=== PATIENT | female | born 1955 | race African-American/Black ===

== ENCOUNTER 2016-12-23 08:37 | Emergency (ER) | payer MEDICAID, OTHER ==
[~2016-12-23] VITALS: Ht 162.6 cm; Wt 85.0 kg
[~2016-12-23 08:37] MED LIST: ALBUTEROL; AMLO2.5T45 PO; HYDR12.529 PO
[2016-12-23] MEDS ORDERED: KETOROLAC 30MG/ML VIAL IV STA (09:48)
[2016-12-23] MEDS ORDERED: SODIUM CHLORIDE 0.9% 1,000 ML IV ONE (09:48)
[2016-12-23] MEDS ORDERED: ONDANSETRON HCL 4MG/2ML VIAL IV STA (09:48)
[2016-12-23] MEDS ORDERED: FAMOTIDINE 20MG/2ML VIAL IV STA (09:48)
[2016-12-23 10:22] LABS: BASOPHILS % 0.7 % (0.0-2.0); EOSINOPHILS % 0.6 % (0.0-5.0); HEMATOCRIT. 42.1 % (36.0-48.0); HEMOGLOBIN. 14.3 g/dL (12.0-16.0); LYMPHOCYTES % 12.4 % (20.0-50.0); MEAN CORPUSCULAR HEMOGLOBIN 30.7 pg (28.0-32.0); MEAN CORPUSCULAR VOLUME 90.4 fL (81.0-99.0); MEAN PLATELET VOLUME 7.4 fl (7.4-10.4); MONOCYTES % 5.1 % (2.0-8.0); NEUTROPHILS % 81.2 % (40.0-76.0); PLATELET 436 x1000/uL (130-400); RED BLOOD CELL COUNT 4.66 mill/uL (4.2-5.4); RED CELL DISTRIBUTION WIDTH 13.3 % (11.6-14.6)
[2016-12-23 10:27] LABS: CLARITY URINE CLOUDY (CLEAR); COLOR URINE YELLOW (YELLOW); GLUCOSE URINE NEGATIVE (NEGATIVE); KETONES URINE NEGATIVE (NEGATIVE); LEUKOCYTE ESTERASE URINE NEGATIVE (NEGATIVE); NITRITE URINE NEGATIVE (NEGATIVE); OCCULT BLOOD URINE 2+ (NEGATIVE); PH URINE 6.5 (4.5-8.0); PROTEIN URINE 3+ (NEGATIVE); SPECIFIC GRAVITY URINE 1.021 (1.005-1.030)
[2016-12-23 10:28] LABS: CHLORIDE 97 mEq/L (98-107)
[2016-12-23 10:29] LABS: PROTHROMBIN TIME 10.7 sec (9.4-11.6)
[2016-12-23 10:36] LABS: CARBON DIOXIDE 31 mEq/L (21-32); ETHANOL BLOOD < 10 mg/dL
[2016-12-23 11:06] LABS: *AMPHETAMINES SCREEN URINE NEGATIVE (NEGATIVE); *BARBITURATES SCREEN URINE NEGATIVE (NEGATIVE); *BENZODIAZEPINES SCREEN URINE NEGATIVE (NEGATIVE); *COCAINE SCREEN URINE PRESUMTIVE POSITIVE (NEGATIVE); CANNABINOID URINE SCREEN PRESUMTIVE POSITIVE (NEGATIVE); METHADONE URINE SCREEN NEGATIVE (NEGATIVE); OPIATES URINE SCREEN NEGATIVE (NEGATIVE); PHENCYCLIDINE URINE SCREEN NEGATIVE (NEGATIVE)
[2016-12-23] MEDS ORDERED: POTASSIUM CHLORIDE 20MEQ TABLET SR PO ONE (12:30)
[2016-12-23 13:46] VITALS: BP 146/82
== END 2016-12-23 14:15 | disposition home or self-care (01) ==
LOC: ER 09:03
DX: R19.7 Diarrhea, unspecified (principal); I10 Essential (primary) hypertension; J45.909 Unspecified asthma, uncomplicated; G35 Multiple sclerosis; F12.10 Cannabis abuse, uncomplicated; E87.6 Hypokalemia; F14.10 Cocaine abuse, uncomplicated; Z86.73 Personal history of transient ischemic attack (TIA), and cerebral infarction without residual deficits
CPT/HCPCS: 36415; 80053; 80305; 81001; 83690; 85025; 85610; 93005; 96361; 96374; 96375; 99285; G0482; J1885; J2405; J3490; J7030; Z7610

== ENCOUNTER 2017-03-17 08:34 | Emergency (ER) | payer MEDICAID, OTHER ==
[~2017-03-17] VITALS: Ht 162.6 cm; Wt 70.0 kg
[2017-03-17] MEDS ORDERED: SODIUM CHLORIDE 0.9% 1,000 ML IV ONE (08:58)
[2017-03-17] MEDS ORDERED: ONDANSETRON HCL 4MG/2ML VIAL IV STA (08:58)
[2017-03-17] MEDS ORDERED: PANTOPRAZOLE SODIUM 40 MG/VIAL IV STA (08:58)
[2017-03-17] MEDS ORDERED: MORPHINE SULFATE 4 MG/ML CPJ (NOT FOR IM USE) IV STA (08:58)
[2017-03-17 09:25] LABS: HEMATOCRIT. 40.5 % (36.0-48.0); HEMOGLOBIN. 14.1 g/dL (12.0-16.0); MEAN CORPUSCULAR HEMOGLOBIN 31.6 pg (28.0-32.0); MEAN CORPUSCULAR VOLUME 90.8 fL (81.0-99.0); MEAN PLATELET VOLUME 7.7 fl (7.4-10.4); PLATELET 427 x1000/uL (130-400); RED BLOOD CELL COUNT 4.46 mill/uL (4.2-5.4); RED CELL DISTRIBUTION WIDTH 13.9 % (11.6-14.6)
[2017-03-17 09:26] LABS: CLARITY URINE CLOUDY (CLEAR); COLOR URINE YELLOW (YELLOW); GLUCOSE URINE NEGATIVE (NEGATIVE); KETONES URINE NEGATIVE (NEGATIVE); LEUKOCYTE ESTERASE URINE NEGATIVE (NEGATIVE); NITRITE URINE NEGATIVE (NEGATIVE); OCCULT BLOOD URINE 1+ (NEGATIVE); PH URINE 5.5 (4.5-8.0); PROTEIN URINE 2+ (NEGATIVE); SPECIFIC GRAVITY URINE 1.025 (1.005-1.030); UROBILINOGEN URINE 0.2 E.U./dL (0.2-1.0)
[2017-03-17 09:27] LABS: CHLORIDE 102 mEq/L (98-107)
[2017-03-17 09:28] LABS: PROTHROMBIN TIME 10.9 sec (9.4-11.6)
[2017-03-17 09:38] LABS: CARBON DIOXIDE 27 mEq/L (21-32); TROPONIN I < 0.02 ng/mL (0.00-0.04)
[2017-03-17 10:29] LABS: PLATELET ESTIMATE INCREASED
[2017-03-17] MEDS ORDERED: IOHEXOL-300 100 ML BOTTLE ONE (10:59)
[2017-03-17] MEDS ORDERED: KCL 20MEQ/100ML PREMIX 100 ML IV ONE (11:15)
[2017-03-17] MEDS ORDERED: POTASSIUM CHLORIDE 20MEQ TABLET SR PO ONE (12:15)
[2017-03-17 12:18] VITALS: BP 124/75
== END 2017-03-17 12:48 | disposition home or self-care (01) ==
LOC: ER 08:56 → EDBEDREQ 09:01 → ER 12:48 → CANBEDREQ 16:01
DX: K52.9 Noninfective gastroenteritis and colitis, unspecified (principal); I10 Essential (primary) hypertension; E11.9 Type 2 diabetes mellitus without complications; J45.909 Unspecified asthma, uncomplicated; F12.10 Cannabis abuse, uncomplicated; Z86.73 Personal history of transient ischemic attack (TIA), and cerebral infarction without residual deficits
CPT/HCPCS: 36415; 71010; 74177; 80053; 81001; 83605; 83690; 84484; 85025; 85610; 93005; 96361; 96374; 96375; 99285; C9113; J2270; J2405; J3480; J7030; Q9967; Z7610

== ENCOUNTER 2017-12-01 01:01 | Emergency (ER) | payer MEDICAID, OTHER ==
[~2017-12-01] VITALS: Ht 162.6 cm; Wt 80.0 kg
[2017-12-01] MEDS ORDERED: MORPHINE SULFATE 4 MG/ML CPJ (NOT FOR IM USE) IV STA (01:21)
[2017-12-01] MEDS ORDERED: ONDANSETRON HCL 4MG/2ML VIAL IV STA (01:21)
[2017-12-01 02:09] LABS: BASOPHILS % 0.6 % (0.0-2.0); HEMOGLOBIN. 13.2 g/dL (12.0-16.0); LYMPHOCYTES % 14.2 % (20.0-50.0); MEAN CORPUSCULAR HEMOGLOBIN 31.6 pg (28.0-32.0); MEAN PLATELET VOLUME 7.5 fl (7.4-10.4); MONOCYTES % 7.8 % (2.0-8.0); NEUTROPHILS % 76.4 % (40.0-76.0); PLATELET 404 x1000/uL (130-400); RED BLOOD CELL COUNT 4.17 mill/uL (4.2-5.4); RED CELL DISTRIBUTION WIDTH 13.8 % (11.6-14.6)
[2017-12-01 02:10] LABS: CHLORIDE 100 mEq/L (98-107)
[2017-12-01 04:52] VITALS: BP 149/74
[2017-12-01] MEDS ORDERED: PREDNISONE 20MG TABLET PO STA (05:17)
[2017-12-01] MEDS ORDERED: IPRATROPIUM BROMIDE (0.02%) 0.5MG/2.5ML NEB HHN STA (05:17)
[2017-12-01] MEDS ORDERED: ALBUTEROL (0.083%) 2.5MG/3ML NEB HHN STA (05:17)
[2017-12-01] MEDS: POTASSIUM CHLORIDE 20MEQ TABLET SR PO NR ×2 (05:25→05:44)
== END 2017-12-01 06:17 | disposition home or self-care (01) ==
LOC: ER 04:17
DX: G43.909 Migraine, unspecified, not intractable, without status migrainosus (principal); E87.6 Hypokalemia; J45.909 Unspecified asthma, uncomplicated; I10 Essential (primary) hypertension; F12.90 Cannabis use, unspecified, uncomplicated; Z86.73 Personal history of transient ischemic attack (TIA), and cerebral infarction without residual deficits
CPT/HCPCS: 36415; 70450; 71045; 80053; 85025; 93005; 94640; 96374; 96375; 99284; J2270; J2405; J7512; J7611

== ENCOUNTER 2017-12-02 21:24 | Emergency (ER) | payer MEDICAID ==
[~2017-12-02] VITALS: Ht 160 cm; Wt 69.0 kg
[2017-12-02] MEDS ORDERED: DIAZEPAM 5 MG/ML 2ML CPJ IM ONE (23:00)
[2017-12-02] MEDS ORDERED: ALBUTEROL (0.5%) 2.5MG/0.5ML NEB HHN ONE (23:00)
[2017-12-03 01:05] VITALS: BP 162/68
== END 2017-12-03 01:07 | disposition home or self-care (01) ==
LOC: ER 21:29
DX: M62.838 Other muscle spasm (principal); M54.2 Cervicalgia; J45.909 Unspecified asthma, uncomplicated; E11.9 Type 2 diabetes mellitus without complications; Z86.73 Personal history of transient ischemic attack (TIA), and cerebral infarction without residual deficits; Z79.899 Other long term (current) drug therapy
CPT/HCPCS: 94640; 96372; 99283; J7611; Z7610

== ENCOUNTER 2018-11-29 13:33 | Inpatient (IN) | payer MEDICAID ==
[~2018-11-29] VITALS: Ht 152.4 cm; Wt 74.8 kg
[2018-11-29] MEDS ORDERED: ALBUTEROL (0.083%) 2.5MG/3ML NEB HHN STA (14:22)
[2018-11-29] MEDS ORDERED: METHYLPREDNISOLONE SOD SUCC 125 MG/2 ML VIAL IV STA (14:22)
[2018-11-29] MEDS ORDERED: IPRATROPIUM BROMIDE (0.02%) 0.5MG/2.5ML NEB HHN STA (14:22)
[2018-11-29] MEDS ORDERED: NITROGLYCERIN 0.4MG TABLET SL SL PRN (14:30)
[2018-11-29] MEDS ORDERED: ASPIRIN 81MG TABLET PO ONE (14:30)
[2018-11-29 15:25] LABS: BASOPHILS % 0.7 % (0.0-2.0); EOSINOPHILS % 2.1 % (0.0-5.0); HEMOGLOBIN. 13.4 g/dL (12.0-16.0); MEAN CORPUSCULAR HEMOGLOBIN 32.4 pg (28.0-32.0); MEAN PLATELET VOLUME 7.4 fl (7.4-10.4); MONOCYTES % 6.4 % (2.0-8.0); NEUTROPHILS % 69.8 % (40.0-76.0); PLATELET 441 x1000/uL (130-400); RED BLOOD CELL COUNT 4.15 mill/uL (4.2-5.4); RED CELL DISTRIBUTION WIDTH 13.2 % (11.6-14.6)
[2018-11-29 15:27] LABS: CHLORIDE 106 mEq/L (98-107)
[2018-11-29 15:30] LABS: PROTHROMBIN TIME 10.2 sec (9.6-11.0)
[2018-11-29] MEDS ORDERED: ONDANSETRON HCL 4MG/2ML INJ IV STA (16:37)
[2018-11-29] MEDS ORDERED: MORPHINE SULFATE 4 MG/ML CPJ (NOT FOR IM USE) IV STA (16:37)
[2018-11-29] MEDS ORDERED: POTASSIUM CHLORIDE 20MEQ TABLET SR PO ONE (17:45)
[2018-11-29] MEDS ORDERED: ONDANSETRON HCL 4MG/2ML INJ IV PRN (18:30)
[2018-11-29] MEDS ORDERED: LORAZEPAM 0.5MG TABLET PO PRN (18:30)
[2018-11-29] MEDS ORDERED: CLONIDINE 0.1MG TABLET PO PRN (18:30)
[2018-11-29] MEDS ORDERED: DOCUSATE SODIUM 100MG CAPSULE PO PRN (18:30)
[2018-11-29] MEDS ORDERED: GUAIFENESIN 200MG/10ML SUGAR FREE UDC PO PRN (18:30)
[2018-11-29] MEDS ORDERED: ACETAMINOPHEN 325MG TABLET PO PRN (18:30)
[2018-11-29] MEDS: METHYLPREDNISOLONE SOD SUCC 40 MG/ML VIAL IV SCH (20:07)
[2018-11-29 21:00] VITALS: BP 139/71
[2018-11-29] MEDS: HYDROCODONE/ACETAMINOPHEN 5/325MG TABLET PO PRN (21:13)
[2018-11-29] MEDS ORDERED: DEXTROSE 50% WATER 50ML SYRINGE IV PRN (21:15)
[2018-11-29 21:37] VITALS: BP 139/71
[2018-11-29] MEDS ORDERED: ERGO400C PO (22:20)
[2018-11-29] MEDS ORDERED: GABA800T97 PO (22:20)
[2018-11-29] MEDS ORDERED: CALC-1042 PO ×2 (22:20→22:23)
[2018-11-29] MEDS ORDERED: ASPI-986 PO (22:20)
[2018-11-29] MEDS ORDERED: ASPI-1158 PO (22:22)
[2018-11-29 23:35] LABS: *AMPHETAMINES SCREEN URINE NEGATIVE (NEGATIVE); *BARBITURATES SCREEN URINE NEGATIVE (NEGATIVE); *BENZODIAZEPINES SCREEN URINE NEGATIVE (NEGATIVE); *COCAINE SCREEN URINE PRESUMTIVE POSITIVE (NEGATIVE); METHADONE URINE SCREEN NEGATIVE (NEGATIVE); OPIATES URINE SCREEN PRESUMTIVE POSITIVE (NEGATIVE)
[2018-11-29 23:36] LABS: CANNABINOID URINE SCREEN NEGATIVE (NEGATIVE); PHENCYCLIDINE URINE SCREEN NEGATIVE (NEGATIVE)
[2018-11-29] MEDS: IPRATROPIUM/ALBUTEROL 0.5-3(2.5)MG/3ML NEB INH PRN (23:48)
[2018-11-30] VITALS: BP 120/64
[2018-11-30 04:00] VITALS: BP 113/51
[2018-11-30] MEDS: METHYLPREDNISOLONE SOD SUCC 40 MG/ML VIAL IV SCH ×2 (04:30→12:05)
[2018-11-30] MEDS: IPRATROPIUM/ALBUTEROL 0.5-3(2.5)MG/3ML NEB INH PRN ×2 (04:40→08:45)
[2018-11-30] MEDS: HYDROCODONE/ACETAMINOPHEN 5/325MG TABLET PO PRN ×2 (05:31→11:49)
[2018-11-30] MEDS: INSULIN LISPRO 100 UNITS/ML SUBCUT SCH ×3 (05:34→17:40)
[2018-11-30] MEDS: BLOOD SUGAR DIAGNOSTIC STRIP TEST SCH ×3 (05:34→17:10)
[2018-11-30 06:51] LABS: HEMATOCRIT. 37.2 % (36.0-48.0); HEMOGLOBIN. 12.7 g/dL (12.0-16.0); MEAN PLATELET VOLUME 7.9 fl (7.4-10.4); PLATELET 437 x1000/uL (130-400); RED BLOOD CELL COUNT 3.96 mill/uL (4.2-5.4); RED CELL DISTRIBUTION WIDTH 13.2 % (11.6-14.6)
[2018-11-30 07:07] LABS: CHLORIDE 101 mEq/L (98-107)
[2018-11-30 07:26] LABS: LDL CHOLESTEROL 98 mg/dL (5-100)
[2018-11-30 07:28] LABS: HDL CHOLESTEROL 54 mg/dL (40-59)
[2018-11-30 08:00] VITALS: BP 115/60
[2018-11-30 12:00] VITALS: BP 127/63
[2018-11-30] MEDS ORDERED: IPRATROPIUM/ALBUTEROL 0.5-3(2.5)MG/3ML NEB HHN SCH (12:00)
[2018-11-30 12:36] LABS: PLATELET ESTIMATE INCREASED
[2018-11-30] MEDS ORDERED: AMLODIPINE 2.5MG TABLET PO SCH (16:30)
[2018-11-30] MEDS ORDERED: MED4 MT (16:40)
[2018-11-30] MEDS ORDERED: ATOR20TA PO (16:40)
[2018-11-30 16:47] VITALS: BP 148/79
[2018-11-30] MEDS ORDERED: ATORVASTATIN CALCIUM 20MG TABLET PO SCH (21:00)
[2018-12-01] MEDS ORDERED: ASPIRIN 81MG TABLET PO SCH (09:00)
== END 2018-11-30 18:00 | disposition home or self-care (01) | DRG 816 ==
LOC: ER 13:33 → EDBEDREQ 15:54 → 8WST 17:34 → EDBEDREQTM 18:24 → ENRESERV 18:24 → EDBEDREQ 18:24
PROVIDERS: ADMIT Internal Medicine; ATTEND Internal Medicine
DX: T40.5X1A Poisoning by cocaine, accidental (unintentional), initial encounter (principal); J96.00 Acute respiratory failure, unspecified whether with hypoxia or hypercapnia; N17.9 Acute kidney failure, unspecified; J68.0 Bronchitis and pneumonitis due to chemicals, gases, fumes and vapors; I10 Essential (primary) hypertension; E11.65 Type 2 diabetes mellitus with hyperglycemia; E11.9 Type 2 diabetes mellitus without complications; Z86.73 Personal history of transient ischemic attack (TIA), and cerebral infarction without residual deficits; Z79.84 Long term (current) use of oral hypoglycemic drugs; Y92.89 Other specified places as the place of occurrence of the external cause
CPT/HCPCS: 36415; 71045; 80048; 80061; 80305; 82962; 83036; 83880; 84443; 84484; 93005; 94640; 94644; 96374; 96375; 99285; J2270; J2405; J2920; J2930; J7611; J7620

== ENCOUNTER 2022-01-06 15:40 | Emergency (ER) | payer BC, MEDICAID ==
[~2022-01-06] VITALS: Ht 170.2 cm; Wt 82.0 kg
[~2022-01-06 15:40] MED LIST changes: +ASPI-1406 PO; +ATOR20TA PO; +CALC-1042 PO; +ERGO400C PO; -HYDR12.529 PO; +MED4 MT
[2022-01-06 15:41] VITALS: BP 158/72
== END 2022-01-06 15:57 | disposition left against medical advice (07) ==
LOC: ER 15:40
DX: Z53.21 Procedure and treatment not carried out due to patient leaving prior to being seen by health care provider (principal)

== ENCOUNTER 2022-10-24 11:15 | Emergency (ER) | payer BC, MEDICAID ==
[~2022-10-24] VITALS: Ht 162.6 cm; Wt 89.0 kg
[2022-10-24 11:17] VITALS: O2SAT 95
[2022-10-24 11:38] VITALS: BP 167/86; PULSE 68; RESP 14; TEMP 98.8
[2022-10-24] MEDS ORDERED: MORPHINE SULFATE 4 MG/ML CPJ (NOT FOR IM USE) IV ONE (12:45)
[2022-10-24 13:04] LABS: BASOPHILS % 0.5 % (0.0-2.0); EOSINOPHILS % 0.6 % (0.0-5.0); HEMATOCRIT. 38.6 % (36.0-48.0); HEMOGLOBIN. 12.8 g/dL (12.0-16.0); LYMPHOCYTES % 7.7 % (20.0-50.0); MEAN CORPUSCULAR HEMOGLOBIN 31.1 pg (28.0-32.0); MEAN CORPUSCULAR VOLUME 94.2 fL (81.0-99.0); MEAN PLATELET VOLUME 7.3 fl (7.4-10.4); MONOCYTES % 5.1 % (2.0-8.0); NEUTROPHILS % 86.1 % (40.0-76.0); PLATELET 429 x1000/uL (130-400); RED CELL DISTRIBUTION WIDTH 16.1 % (11.6-14.6)
[2022-10-24] MEDS ORDERED: ASPIRIN 325MG EC TABLET PO NR (13:15)
[2022-10-24] MEDS ORDERED: ONDANSETRON HCL 4MG/2ML INJ IV NR (13:15)
[2022-10-24 13:17] LABS: CHLORIDE 105 mEq/L (98-107)
[2022-10-24] MEDS ORDERED: AMLODIPINE 10MG TABLET PO SCH (14:15)
[2022-10-24] MEDS ORDERED: AMLODIPINE 5MG TABLET PO SCH (14:20)
[2022-10-24] MEDS ORDERED: FUROSEMIDE 40MG/4ML VIAL IVP SCH (14:30)
[2022-10-25] MEDS ORDERED: ASPIRIN 81MG TABLET PO SCH (09:00)
== END 2022-10-25 08:39 | disposition left against medical advice (07) ==
LOC: ER 11:15 → EDBEDREQ 13:40 → EDBEDREQTM 13:40 → CANBEDREQ 17:12 → ER 10-25 08:39
DX: R07.89 Other chest pain (principal); J45.909 Unspecified asthma, uncomplicated; I50.9 Heart failure, unspecified; J44.9 Chronic obstructive pulmonary disease, unspecified; I25.2 Old myocardial infarction; Z86.73 Personal history of transient ischemic attack (TIA), and cerebral infarction without residual deficits; Z20.822 Contact with and (suspected) exposure to COVID-19
CPT/HCPCS: 36415; 71045; 80053; 83880; 84484; 85025; 87426; 93005; 96374; 96375; 99285; C9803; J1940; J2270; J2405

== ENCOUNTER 2024-06-06 15:57 | Inpatient (IN) | payer BC, MEDICAID, MEDICARE ==
[~2024-06-06] VITALS: Ht 162.6 cm; Wt 94.0 kg
[2024-06-06 15:09] VITALS: PULSE 68; RESP 20
[~2024-06-06 15:57] MED LIST changes: -MED4 MT; +METH4TAB95 MT
[2024-06-06] MEDS ORDERED: EPINEPHRINE 5 MG in SODIUM CHLORIDE 0.9% 245 ML IV SCH (16:15)
[2024-06-06] MEDS: ETOMIDATE 2MG/ML 10ML VIAL IV ONE (16:17)
[2024-06-06] MEDS: ROCURONIUM BROMIDE 10MG/ML VIAL 5ML IV ONE (16:17)
[2024-06-06 16:27] LABS: HEMATOCRIT. 31.5 % (36.0-48.0); MEAN CORPUSCULAR HGB CONC 31.7 g/dL (31.0-37.0); MEAN PLATELET VOLUME 8.9 fl (7.4-10.4); PLATELET 370 x1000/uL (130-400); RED BLOOD CELL COUNT 3.12 mill/uL (4.2-5.4)
[2024-06-06 16:32] LABS: DIFFERENTIAL COMMENT 1
[2024-06-06 16:34] LABS: CHLORIDE 106 mEq/L (98-107); POTASSIUM 3.9 mEq/L (3.5-5.1); SODIUM 147 mEq/L (136-145)
[2024-06-06 16:35] LABS: CARBON DIOXIDE 31 mEq/L (21-32)
[2024-06-06 16:36] LABS: CALCIUM 8.8 mg/dL (8.7-10.4)
[2024-06-06 16:40] LABS: GLUCOSE 92 mg/dL (70-105)
[2024-06-06 16:41] LABS: UREA NITROGEN BLOOD 28 mg/dL (9-23)
[2024-06-06 16:42] LABS: ALANINE AMINOTRANSFERASE 61 IU/L (10-49); ALBUMIN 3.7 g/dL (3.2-4.8); ASPARTATE AMINOTRANSFERASE 57 IU/L (<34)
[2024-06-06 16:43] LABS: BILIRUBIN DIRECT 0.2 mg/dL (<=3.0); BILIRUBIN TOTAL 0.7 mg/dL (0.1-1.0); PROTEIN TOTAL 6.4 g/dL (6.0-8.3)
[2024-06-06 16:54] LABS: PLATELET ESTIMATE NORMAL; TROPONIN I HIGH SENSITIVITY 39 ng/L (3.0-34)
[2024-06-06] MEDS: PROPOFOL 10MG/ML 100ML 100 ML IV ONE (17:12)
[2024-06-06] MEDS: SODIUM CHLORIDE 0.9% (SEPSIS BOLUS) IV ONE (17:13)
[2024-06-06] MEDS: EPINEPHRINE 5 MG in SODIUM CHLORIDE 0.9% 245 ML IV PRN (17:13)
[2024-06-06] MEDS: PIPERACILLIN/TAZO 3.375G/50ML 50 ML IV ONE (17:20)
[2024-06-06 17:32] VITALS: RESP 20
[2024-06-06] MEDS: MAGNESIUM 2 G PREMIX 50 ML IV ONE (17:34)
[2024-06-06] MEDS: VANCOMYCIN 1G PREMIX 200 ML IV ONE (17:34)
[2024-06-06 17:36] LABS: INR 1.2; PROTHROMBIN TIME 13.6 sec (9.6-11.0)
[2024-06-06 18:39] LABS: BG BASE EXCESS 1.9 mmol/L (-2.0-3.0); BG CARBOXYHEMOGLOBIN 0.2 % (0.5-1.5); BG DEOXYHEMOGLOBIN 0.3 % (0.0-5.0); BG FRACTION INSPIRED OXYGEN 100; BG HCO3 ACT 24.6 mmol/L (21.0-28.0); BG METHEMOGLOBIN 0.3 % (0.5-1.5); BG OXYGEN SATURATION 99.7 % (94.0-98.0); BG OXYHEMOGLOBIN 99.2 % (94.0-98.0); BG PCO2 32.3 mmHg (32.0-45.0); BG SAMPLE SITE RIGHT RADIAL; BG VENT MODE VENT - AC
[2024-06-06 20:31] VITALS: PULSE 90; RESP 20; O2SAT 100
[2024-06-06 21:57] LABS: TROPONIN I HIGH SENSITIVITY 51 ng/L (3.0-34)
[2024-06-06 22:20] VITALS: PULSE 86; RESP 20; O2SAT 100
[2024-06-07] VITALS (55 sets, daily range): BP systolic 87–177; BP diastolic 32–99; PULSE 61–147; RESP 16–26; TEMP 36.7–37.1; O2SAT 97–100
[2024-06-07] MEDS ORDERED: MAGNESIUM/ALUMINUM HYDROXIDE/SIMETHICONE 30ML UDC PO PRN
[2024-06-07] MEDS ORDERED: ACETAMINOPHEN 325MG TABLET PO PRN
[2024-06-07] MEDS ORDERED: ONDANSETRON HCL 4MG/2ML INJ IV PRN
[2024-06-07] MEDS ORDERED: IPRATROPIUM/ALBUTEROL 0.5-3(2.5)MG/3ML NEB HHN PRN
[2024-06-07] MEDS ORDERED: DOCUSATE SODIUM 100MG CAPSULE PO PRN
[2024-06-07] MEDS ORDERED: FENTANYL CITRATE/PF 1,000 MCG in SODIUM CHLORIDE 0.9% 80 ML IV PRN
[2024-06-07] MEDS ORDERED: FENTANYL 2500MCG/250ML PMX 250 ML IV PRN (00:30)
[2024-06-07] MEDS: FENTANYL CITRATE 1,000 MCG in SODIUM CHLORIDE 0.9% 80 ML IV PRN (00:55)
[2024-06-07] MEDS ORDERED: NOREPINEPHRINE 8MG/250ML PMX 250 ML IV PRN (01:45)
[2024-06-07] MEDS: PANTOPRAZOLE SODIUM 40 MG/VIAL IV SCH (02:45)
[2024-06-07 03:02] LABS: CREATINE KINASE 153 IU/L (34-145)
[2024-06-07 03:12] LABS: TROPONIN I HIGH SENSITIVITY 105 ng/L (3.0-34)
[2024-06-07] MEDS: PROPOFOL 10MG/ML 100ML 100 ML IV PRN (03:34)
[2024-06-07] MEDS: NOREPINEPHRINE 8MG/250ML PMX 250 ML IV PRN (03:34)
[2024-06-07] MEDS: ACETAMINOPHEN 1000MG/100ML 100 ML IV NR (04:30)
[2024-06-07 07:13] LABS: HEMATOCRIT. 32.8 % (36.0-48.0); HEMOGLOBIN. 10.5 g/dL (12.0-16.0); MEAN CORPUSCULAR HEMOGLOBIN 32.3 pg (28.0-32.0); MEAN CORPUSCULAR HGB CONC 31.9 g/dL (31.0-37.0); MEAN CORPUSCULAR VOLUME 101.1 fL (81.0-99.0); MEAN PLATELET VOLUME 8.1 fl (7.4-10.4); PLATELET 339 x1000/uL (130-400); RED BLOOD CELL COUNT 3.25 mill/uL (4.2-5.4); RED CELL DISTRIBUTION WIDTH 18.5 % (11.6-14.6); WHITE BLOOD COUNT 33.1 x1000/uL (4.5-11.0)
[2024-06-07 07:15] LABS: DIFFERENTIAL COMMENT 1
[2024-06-07 07:27] LABS: POTASSIUM 3.9 mEq/L (3.5-5.1)
[2024-06-07 07:28] LABS: CALCIUM 8.3 mg/dL (8.7-10.4)
[2024-06-07 07:37] LABS: T4 FREE 1.09 ng/dL (0.89-1.76); THYROID STIMULATING HORMONE 1.78 uIU/mL (0.55-4.78)
[2024-06-07] MEDS: PIPERACILLIN/TAZO 3.375G/50ML 50 ML IV SCH (07:49)
[2024-06-07 07:56] LABS: CREATINE KINASE 150 IU/L (34-145)
[2024-06-07] MEDS ORDERED: VANCOMYCIN 1.25GM PMX (XELLIA) 250 ML IV SCH (08:00)
[2024-06-07 08:05] LABS: CREATININE 1.8 mg/dL (0.6-1.0)
[2024-06-07] MEDS: IPRATROPIUM/ALBUTEROL 0.5-3(2.5)MG/3ML NEB HHN SCH (08:05)
[2024-06-07 09:40] LABS: TROPONIN I HIGH SENSITIVITY 187 ng/L (3.0-34)
[2024-06-07] MEDS: PROPOFOL 10MG/ML 100ML 100 ML IV SCH (10:40)
[2024-06-07] MEDS: VANCOMYCIN 750MG/150ML (BAXTER) IV SCH (11:10)
[2024-06-07 16:17] LABS: CLARITY URINE CLEAR (CLEAR); COLOR URINE YELLOW (YELLOW); GLUCOSE URINE NEGATIVE (NEGATIVE); KETONES URINE 1+ (NEGATIVE); LEUKOCYTE ESTERASE URINE NEGATIVE (NEGATIVE); NITRITE URINE NEGATIVE (NEGATIVE); OCCULT BLOOD URINE NEGATIVE (NEGATIVE); PROTEIN URINE 2+ (NEGATIVE); SPECIFIC GRAVITY URINE 1.011 (1.005-1.030); UROBILINOGEN URINE 0.2 E.U./dL (0.2-1.0)
[2024-06-07 16:42] LABS: SQUAMOUS EPITHELIAL CELL URINE FEW /lpf (RARE/1+)
[2024-06-07 16:43] LABS: BACTERIA URINE NONE SEEN; RBC URINE NONE SEEN /hpf (0-2); WBC URINE 0-2 /hpf (0-2); YEAST URINE NONE SEEN
[2024-06-07 16:45] LABS: *AMPHETAMINES SCREEN URINE NEGATIVE (NEGATIVE); *BENZODIAZEPINES SCREEN URINE NEGATIVE (NEGATIVE)
[2024-06-07 16:46] LABS: *BARBITURATES SCREEN URINE NEGATIVE (NEGATIVE); *COCAINE SCREEN URINE PRESUMPTIVE POSITIVE (NEGATIVE); CANNABINOID URINE SCREEN NEGATIVE (NEGATIVE); ECSTASY MDMA SCREEN URINE NEGATIVE (NEGATIVE); METHADONE URINE SCREEN NEGATIVE (NEGATIVE); OPIATES URINE SCREEN NEGATIVE (NEGATIVE); PHENCYCLIDINE URINE SCREEN NEGATIVE (NEGATIVE)
[2024-06-07] MEDS: PHENYLEPHRINE 50MG/250ML PMX 250 ML IV PRN (17:35)
[2024-06-08] VITALS (57 sets, daily range): BP systolic 80–149; BP diastolic 44–80; PULSE 57–149; RESP 15–21; TEMP 36.4–36.9; O2SAT 99–100
[2024-06-08] MEDS ORDERED: PROPOFOL 10MG/ML 100ML 100 ML IV PRN (05:15)
[2024-06-08 06:13] LABS: HEMATOCRIT. 30.7 % (36.0-48.0); HEMOGLOBIN. 9.8 g/dL (12.0-16.0); MEAN CORPUSCULAR HEMOGLOBIN 32.8 pg (28.0-32.0); MEAN CORPUSCULAR VOLUME 102.4 fL (81.0-99.0); MEAN PLATELET VOLUME 8.4 fl (7.4-10.4); PLATELET 297 x1000/uL (130-400); RED CELL DISTRIBUTION WIDTH 19.2 % (11.6-14.6); WHITE BLOOD COUNT 20.8 x1000/uL (4.5-11.0)
[2024-06-08 06:35] LABS: CHLORIDE 108 mEq/L (98-107); POTASSIUM 4.2 mEq/L (3.5-5.1); SODIUM 145 mEq/L (136-145)
[2024-06-08 06:36] LABS: CALCIUM 8.4 mg/dL (8.7-10.4); CARBON DIOXIDE 19 mEq/L (21-32)
[2024-06-08 06:41] LABS: GLUCOSE 86 mg/dL (70-105); THYROID STIMULATING HORMONE 1.71 uIU/mL (0.55-4.78); UREA NITROGEN BLOOD 38 mg/dL (9-23)
[2024-06-08 06:59] LABS: CREATININE 2.4 mg/dL (0.6-1.0)
[2024-06-08 07:01] LABS: TROPONIN I HIGH SENSITIVITY 99 ng/L (3.0-34)
[2024-06-08 07:18] LABS: DIFFERENTIAL COMMENT 1
[2024-06-08] MEDS: SODIUM CHLORIDE 0.9% 500 ML IV ONE (09:32)
[2024-06-08 10:56] LABS: BG BASE EXCESS -5.1 mmol/L (-2.0-3.0); BG CARBOXYHEMOGLOBIN 0.7 % (0.5-1.5); BG DEOXYHEMOGLOBIN 9.2 % (0.0-5.0); BG FRACTION INSPIRED OXYGEN 40; BG METHEMOGLOBIN 0.3 % (0.5-1.5); BG OXYGEN SATURATION 90.7 % (94.0-98.0); BG OXYHEMOGLOBIN 89.8 % (94.0-98.0); BG PCO2 37.3 mmHg (32.0-45.0); BG PH 7.348 (7.350-7.450); BG PO2 66.4 mmHg (83.0-108.0); BG SAMPLE SITE RIGHT RADIAL; BG TOTAL HEMOGLOBIN 8.7 g/dL (12.0-16.0); BG VENT MODE VENT - AC
[2024-06-08 15:29] LABS: ANISOCYTOSIS 1+; PLATELET ESTIMATE NORMAL
[2024-06-08] MEDS: DEXT 5%/0.45% NACL 1000ML 1,000 ML IV SCH (15:46)
[2024-06-08 17:05] LABS: ANISOCYTOSIS 2+; PLATELET ESTIMATE NORMAL
[2024-06-08] MEDS: PIPERACILLIN/TAZO 3.375G/50ML 50 ML IV SCH (21:23)
[2024-06-09] VITALS (73 sets, daily range): BP systolic 114–149; BP diastolic 55–86; PULSE 70–87; RESP 10–27; TEMP 36.7–37.1; O2SAT 98–100
[2024-06-09 06:20] LABS: CHLORIDE 109 mEq/L (98-107); POTASSIUM 3.4 mEq/L (3.5-5.1); SODIUM 143 mEq/L (136-145)
[2024-06-09 06:21] LABS: CALCIUM 8.3 mg/dL (8.7-10.4); CARBON DIOXIDE 23 mEq/L (21-32)
[2024-06-09 06:22] LABS: HEMATOCRIT. 25.9 % (36.0-48.0); HEMOGLOBIN. 8.3 g/dL (12.0-16.0); MEAN CORPUSCULAR VOLUME 99.9 fL (81.0-99.0); MEAN PLATELET VOLUME 8.3 fl (7.4-10.4); PLATELET 210 x1000/uL (130-400); RED CELL DISTRIBUTION WIDTH 18.7 % (11.6-14.6); WHITE BLOOD COUNT 16.5 x1000/uL (4.5-11.0)
[2024-06-09 06:26] LABS: CREATININE 2.8 mg/dL (0.6-1.0); GLUCOSE 136 mg/dL (70-105); UREA NITROGEN BLOOD 43 mg/dL (9-23)
[2024-06-09 06:28] LABS: PHOSPHORUS 4.7 mg/dL (2.5-4.9)
[2024-06-09 06:37] LABS: DIFFERENTIAL COMMENT 1
[2024-06-09 07:43] LABS: PLATELET ESTIMATE NORMAL
[2024-06-09 07:44] LABS: ANISOCYTOSIS 1+
[2024-06-09] MEDS: POTASSIUM CHLORIDE 20MEQ TABLET SR PO SCH (08:43)
[2024-06-09] MEDS ORDERED: DEXTROSE 50% WATER 50ML SYRINGE IV PRN (09:00)
[2024-06-09 10:10] LABS: BG BASE EXCESS -5.7 mmol/L (-2.0-3.0); BG CARBOXYHEMOGLOBIN 1.5 % (0.5-1.5); BG DEOXYHEMOGLOBIN 2.3 % (0.0-5.0); BG FRACTION INSPIRED OXYGEN 40; BG HCO3 ACT 21.4 mmol/L (21.0-28.0); BG METHEMOGLOBIN 0.4 % (0.5-1.5); BG OXYGEN SATURATION 97.7 % (94.0-98.0); BG OXYHEMOGLOBIN 95.8 % (94.0-98.0); BG PCO2 49.9 mmHg (32.0-45.0); BG PO2 109.3 mmHg (83.0-108.0); BG SAMPLE SITE RIGHT RADIAL; BG TOTAL HEMOGLOBIN 9.4 g/dL (12.0-16.0); BG TOTAL RESPIRATORY RATE 19 b/min; BG VENT MODE VENT - AC
[2024-06-09] MEDS: SODIUM CHLORIDE 0.45% 1,000 ML IV SCH (10:40)
[2024-06-09 12:00] LABS: BG BASE EXCESS -3.8 mmol/L (-2.0-3.0); BG CARBOXYHEMOGLOBIN 0.3 % (0.5-1.5); BG DEOXYHEMOGLOBIN 4.4 % (0.0-5.0); BG FRACTION INSPIRED OXYGEN 40; BG HCO3 ACT 23.6 mmol/L (21.0-28.0); BG OXYGEN SATURATION 95.6 % (94.0-98.0); BG OXYHEMOGLOBIN 95.3 % (94.0-98.0); BG PCO2 55.1 mmHg (32.0-45.0); BG PO2 88.3 mmHg (83.0-108.0); BG SAMPLE SITE RIGHT RADIAL; BG TOTAL HEMOGLOBIN 9.3 g/dL (12.0-16.0); BG TOTAL RESPIRATORY RATE 12 b/min; BG VENT MODE VENT - SIMV
[2024-06-09] MEDS: POTASSIUM CHLORIDE 20MEQ TABLET SR PO NR (13:56)
[2024-06-09 17:56] LABS: POTASSIUM 3.7 mEq/L (3.5-5.1)
[2024-06-09 17:57] LABS: CALCIUM 8.3 mg/dL (8.7-10.4)
[2024-06-09 18:02] LABS: CREATININE 2.8 mg/dL (0.6-1.0)
[2024-06-09 18:11] LABS: HEMATOCRIT. 27.6 % (36.0-48.0); HEMOGLOBIN. 8.6 g/dL (12.0-16.0); MEAN CORPUSCULAR HEMOGLOBIN 31.8 pg (28.0-32.0); MEAN CORPUSCULAR HGB CONC 31.1 g/dL (31.0-37.0); MEAN CORPUSCULAR VOLUME 102.3 fL (81.0-99.0); MEAN PLATELET VOLUME 8.2 fl (7.4-10.4); PLATELET 180 x1000/uL (130-400); RED CELL DISTRIBUTION WIDTH 18.7 % (11.6-14.6); WHITE BLOOD COUNT 17.3 x1000/uL (4.5-11.0)
[2024-06-09 18:13] LABS: DIFFERENTIAL COMMENT 1
[2024-06-09 22:13] LABS: ANISOCYTOSIS 1+; PLATELET ESTIMATE NORMAL
[2024-06-09 22:14] LABS: GIANT PLATELETS 1+
[2024-06-10] VITALS (90 sets, daily range): BP systolic 97–176; BP diastolic 51–98; PULSE 70–145; RESP 14–32; TEMP 36.6–37.1; O2SAT 93–100
[2024-06-10 06:38] LABS: CARBON DIOXIDE 20 mEq/L (21-32); CHLORIDE 107 mEq/L (98-107); POTASSIUM 3.7 mEq/L (3.5-5.1); SODIUM 141 mEq/L (136-145)
[2024-06-10 06:44] LABS: CREATININE 2.7 mg/dL (0.6-1.0); GLUCOSE 73 mg/dL (70-105)
[2024-06-10 06:45] LABS: UREA NITROGEN BLOOD 47 mg/dL (9-23)
[2024-06-10 07:24] LABS: MEAN CORPUSCULAR HEMOGLOBIN 31.7 pg (28.0-32.0); MEAN CORPUSCULAR HGB CONC 30.9 g/dL (31.0-37.0); MEAN CORPUSCULAR VOLUME 102.7 fL (81.0-99.0); MEAN PLATELET VOLUME 8.5 fl (7.4-10.4); PLATELET 168 x1000/uL (130-400); RED BLOOD CELL COUNT 2.53 mill/uL (4.2-5.4); RED CELL DISTRIBUTION WIDTH 18.5 % (11.6-14.6); WHITE BLOOD COUNT 16.5 x1000/uL (4.5-11.0)
[2024-06-10 08:13] LABS: DIFFERENTIAL COMMENT 1
[2024-06-10 17:39] LABS: BG BASE EXCESS -2.6 mmol/L (-2.0-3.0); BG CARBOXYHEMOGLOBIN 0.2 % (0.5-1.5); BG DEOXYHEMOGLOBIN 3.9 % (0.0-5.0); BG FRACTION INSPIRED OXYGEN 40; BG HCO3 ACT 23.4 mmol/L (21.0-28.0); BG METHEMOGLOBIN 0.3 % (0.5-1.5); BG OXYGEN SATURATION 96.1 % (94.0-98.0); BG OXYHEMOGLOBIN 95.6 % (94.0-98.0); BG PCO2 46.6 mmHg (32.0-45.0); BG PH 7.319 (7.350-7.450); BG PO2 87.2 mmHg (83.0-108.0); BG SAMPLE SITE RIGHT RADIAL; BG TOTAL HEMOGLOBIN 8.3 g/dL (12.0-16.0); BG VENT MODE VENT - CPAP
[2024-06-10 20:45] LABS: ANISOCYTOSIS 1+; PLATELET ESTIMATE NORMAL
[2024-06-11] VITALS (57 sets, daily range): BP systolic 92–158; BP diastolic 50–118; PULSE 74–151; RESP 16–40; TEMP 36.4–36.9; O2SAT 87–100
[2024-06-11] MEDS: CLONIDINE 0.1MG TABLET PO PRN (04:36)
[2024-06-11 05:24] LABS: HEMATOCRIT. 26.5 % (36.0-48.0); HEMOGLOBIN. 8.5 g/dL (12.0-16.0); MEAN CORPUSCULAR HEMOGLOBIN 32.4 pg (28.0-32.0); MEAN CORPUSCULAR HGB CONC 32.1 g/dL (31.0-37.0); MEAN CORPUSCULAR VOLUME 101.1 fL (81.0-99.0); MEAN PLATELET VOLUME 8.6 fl (7.4-10.4); PLATELET 171 x1000/uL (130-400); RED BLOOD CELL COUNT 2.62 mill/uL (4.2-5.4); RED CELL DISTRIBUTION WIDTH 18.1 % (11.6-14.6); WHITE BLOOD COUNT 17.4 x1000/uL (4.5-11.0)
[2024-06-11 05:31] LABS: DIFFERENTIAL COMMENT 1
[2024-06-11 05:55] LABS: CHLORIDE 109 mEq/L (98-107); POTASSIUM 3.6 mEq/L (3.5-5.1); SODIUM 143 mEq/L (136-145)
[2024-06-11 05:56] LABS: CALCIUM 8.5 mg/dL (8.7-10.4); CARBON DIOXIDE 22 mEq/L (21-32)
[2024-06-11 06:01] LABS: GLUCOSE 64 mg/dL (70-105); UREA NITROGEN BLOOD 41 mg/dL (9-23)
[2024-06-11 06:03] LABS: PHOSPHORUS 3.4 mg/dL (2.5-4.9)
[2024-06-11] MEDS: METHYLPREDNISOLONE SOD SUCC 40MG/ML (ACT-O-VIAL) IV NR (11:48)
[2024-06-11 12:01] LABS: BG BASE EXCESS -3.3 mmol/L (-2.0-3.0); BG CARBOXYHEMOGLOBIN 0.5 % (0.5-1.5); BG FRACTION INSPIRED OXYGEN 22; BG HCO3 ACT 21.9 mmol/L (21.0-28.0); BG METHEMOGLOBIN 0.3 % (0.5-1.5); BG OXYGEN SATURATION 79.8 % (94.0-98.0); BG OXYHEMOGLOBIN 79.2 % (94.0-98.0); BG PCO2 40.1 mmHg (32.0-45.0); BG PH 7.355 (7.350-7.450); BG PO2 46.4 mmHg (83.0-108.0); BG SAMPLE SITE RIGHT RADIAL; BG TOTAL HEMOGLOBIN 8.7 g/dL (12.0-16.0); BG VENT MODE NASAL CANNULA
[2024-06-11] MEDS: METHYLPREDNISOLONE SOD SUCC 40MG/ML (ACT-O-VIAL) IV SCH (13:18)
[2024-06-11 21:51] LABS: PLATELET ESTIMATE NORMAL
[2024-06-12] VITALS (9 sets, daily range): BP systolic 128–163; BP diastolic 68–108; PULSE 68–87; RESP 18–32; TEMP 36.1–36.6; O2SAT 96–99
[2024-06-12 08:11] LABS: HEMATOCRIT. 23.7 % (36.0-48.0); HEMOGLOBIN. 7.9 g/dL (12.0-16.0); MEAN CORPUSCULAR HEMOGLOBIN 32.7 pg (28.0-32.0); MEAN CORPUSCULAR HGB CONC 33.3 g/dL (31.0-37.0); MEAN CORPUSCULAR VOLUME 98.3 fL (81.0-99.0); MEAN PLATELET VOLUME 8.9 fl (7.4-10.4); PLATELET 191 x1000/uL (130-400); RED BLOOD CELL COUNT 2.41 mill/uL (4.2-5.4); RED CELL DISTRIBUTION WIDTH 17.7 % (11.6-14.6); WHITE BLOOD COUNT 10.6 x1000/uL (4.5-11.0)
[2024-06-12 08:28] LABS: CARBON DIOXIDE 22 mEq/L (21-32); CHLORIDE 110 mEq/L (98-107); POTASSIUM 3.5 mEq/L (3.5-5.1); SODIUM 144 mEq/L (136-145)
[2024-06-12 08:29] LABS: CALCIUM 8.8 mg/dL (8.7-10.4)
[2024-06-12 08:33] LABS: ALBUMIN 3.1 g/dL (3.2-4.8)
[2024-06-12 08:34] LABS: CREATININE 1.6 mg/dL (0.6-1.0); GLUCOSE 113 mg/dL (70-105); UREA NITROGEN BLOOD 37 mg/dL (9-23)
[2024-06-12 08:36] LABS: PHOSPHORUS 3.5 mg/dL (2.5-4.9)
[2024-06-12 08:52] LABS: PREALBUMIN < 5.0 mg/dl (10.0-40.0)
[2024-06-12 09:09] LABS: DIFFERENTIAL COMMENT 1
[2024-06-12] MEDS: AMLODIPINE 2.5MG TABLET PO SCH (12:08)
[2024-06-12] MEDS ORDERED: IPRATROPIUM/ALBUTEROL 0.5-3(2.5)MG/3ML NEB HHN SCH (16:00)
[2024-06-12 16:49] LABS: PLATELET ESTIMATE NORMAL
[2024-06-12] MEDS: ATORVASTATIN CALCIUM 20MG TABLET PO SCH (21:13)
[2024-06-13] VITALS: BP 178/72; PULSE 77; RESP 20; TEMP 36.1; O2SAT 98
[2024-06-13 04:00] VITALS: BP 162/82; PULSE 66; RESP 20; TEMP 36.2; O2SAT 100
[2024-06-13 07:10] LABS: HEMATOCRIT. 24.3 % (36.0-48.0); HEMOGLOBIN. 7.6 g/dL (12.0-16.0); MEAN CORPUSCULAR HEMOGLOBIN 31.2 pg (28.0-32.0); MEAN CORPUSCULAR HGB CONC 31.2 g/dL (31.0-37.0); MEAN PLATELET VOLUME 8.5 fl (7.4-10.4); PLATELET 218 x1000/uL (130-400); RED BLOOD CELL COUNT 2.43 mill/uL (4.2-5.4); RED CELL DISTRIBUTION WIDTH 17.6 % (11.6-14.6)
[2024-06-13 07:40] LABS: CARBON DIOXIDE 24 mEq/L (21-32); CHLORIDE 111 mEq/L (98-107); POTASSIUM 3.4 mEq/L (3.5-5.1); SODIUM 145 mEq/L (136-145)
[2024-06-13 07:41] LABS: CALCIUM 8.7 mg/dL (8.7-10.4)
[2024-06-13 07:45] LABS: CREATININE 1.6 mg/dL (0.6-1.0)
[2024-06-13 07:46] LABS: GLUCOSE 102 mg/dL (70-105); UREA NITROGEN BLOOD 39 mg/dL (9-23)
[2024-06-13 07:48] LABS: PHOSPHORUS 2.3 mg/dL (2.5-4.9)
[2024-06-13 07:52] LABS: DIFFERENTIAL COMMENT 1
[2024-06-13 08:00] VITALS: BP 130/84; PULSE 94; RESP 16; TEMP 37; O2SAT 96
[2024-06-13] MEDS: LIDOCAINE HCL 1% 10 MG/ML 10ML VIAL ONE (08:02)
[2024-06-13] MEDS ORDERED: HYDRALAZINE 20MG/ML VIAL IV PRN (11:00)
[2024-06-13] MEDS: LOSARTAN 25 MG TABLET PO SCH (11:37)
[2024-06-13] MEDS: GUAIFENESIN 200MG/10ML SUGAR FREE UDC PO PRN (11:38)
[2024-06-13] MEDS: POTASSIUM CHLORIDE 20MEQ TABLET SR PO SCH (11:38)
[2024-06-13 12:00] VITALS: BP 129/79; PULSE 85; RESP 18; TEMP 36.8; O2SAT 97
[2024-06-13] MEDS ORDERED: IPRATROPIUM/ALBUTEROL 0.5-3(2.5)MG/3ML NEB HHN PRN (13:45)
[2024-06-13] MEDS: HYDRALAZINE HCL 50MG TABLET PO SCH (15:08)
[2024-06-13 16:00] VITALS: BP 116/62; PULSE 101; RESP 24; TEMP 36.7; O2SAT 95
[2024-06-13] MEDS: IPRATROPIUM/ALBUTEROL 0.5-3(2.5)MG/3ML NEB HHN SCH (18:00)
[2024-06-13 20:00] VITALS: BP 102/72; PULSE 82; RESP 19; TEMP 36.5; O2SAT 100
[2024-06-13] MEDS: POTASSIUM PHOSPHATE 15 MMOL in DEXT 5% WATER 245 ML IV NR (20:19)
[2024-06-13] MEDS: AMLODIPINE 2.5MG TABLET PO SCH (20:56)
[2024-06-13 22:00] LABS: ANISOCYTOSIS 1+; PLATELET ESTIMATE NORMAL
[2024-06-14] VITALS (7 sets, daily range): BP systolic 101–180; BP diastolic 50–86; PULSE 76–94; RESP 18–20; TEMP 35.9–36.5; O2SAT 98–100
[2024-06-14] MEDS: METHYLPREDNISOLONE SOD SUCC 40MG/ML (ACT-O-VIAL) IV SCH (08:39)
[2024-06-14] MEDS: HYDRALAZINE HCL 50MG TABLET PO SCH (14:25)
[2024-06-14 21:03] LABS: HEMATOCRIT. 26.5 % (36.0-48.0); HEMOGLOBIN. 8.3 g/dL (12.0-16.0); MEAN CORPUSCULAR HEMOGLOBIN 31.5 pg (28.0-32.0); MEAN CORPUSCULAR HGB CONC 31.3 g/dL (31.0-37.0); MEAN CORPUSCULAR VOLUME 100.7 fL (81.0-99.0); MEAN PLATELET VOLUME 8.3 fl (7.4-10.4); PLATELET 266 x1000/uL (130-400); RED BLOOD CELL COUNT 2.64 mill/uL (4.2-5.4); RED CELL DISTRIBUTION WIDTH 18.2 % (11.6-14.6); WHITE BLOOD COUNT 13.1 x1000/uL (4.5-11.0)
[2024-06-14 21:07] LABS: DIFFERENTIAL COMMENT 1
[2024-06-14 21:10] LABS: CARBON DIOXIDE 26 mEq/L (21-32); CHLORIDE 109 mEq/L (98-107); POTASSIUM 4.2 mEq/L (3.5-5.1); SODIUM 143 mEq/L (136-145)
[2024-06-14 21:11] LABS: CALCIUM 8.6 mg/dL (8.7-10.4)
[2024-06-14 21:15] LABS: CREATININE 1.3 mg/dL (0.6-1.0); GLUCOSE 114 mg/dL (70-105)
[2024-06-14 21:16] LABS: UREA NITROGEN BLOOD 35 mg/dL (9-23)
[2024-06-14 21:18] LABS: PHOSPHORUS 2.7 mg/dL (2.5-4.9)
[2024-06-14 21:51] LABS: ANISOCYTOSIS 1+; PLATELET ESTIMATE NORMAL
[2024-06-15] VITALS (9 sets, daily range): BP systolic 103–181; BP diastolic 59–77; PULSE 76–110; RESP 16–22; TEMP 36.2–36.6; O2SAT 95–100
[2024-06-15] MEDS: ACETAMINOPHEN 325MG TABLET PO PRN (00:08)
[2024-06-15 06:07] LABS: CALCIUM 8.7 mg/dL (8.7-10.4); POTASSIUM 3.7 mEq/L (3.5-5.1)
[2024-06-15 06:13] LABS: CREATININE 1.1 mg/dL (0.6-1.0)
[2024-06-15 08:19] LABS: BASOPHILS % 0.3 % (0.0-2.0); DIFFERENTIAL COMMENT 0; EOSINOPHILS % 0.3 % (0.0-5.0); HEMATOCRIT. 26.7 % (36.0-48.0); HEMOGLOBIN. 8.5 g/dL (12.0-16.0); LYMPHOCYTES % 7.1 % (20.0-50.0); MEAN CORPUSCULAR HGB CONC 31.7 g/dL (31.0-37.0); MEAN CORPUSCULAR VOLUME 100.8 fL (81.0-99.0); MEAN PLATELET VOLUME 8.3 fl (7.4-10.4); MONOCYTES % 6.2 % (2.0-8.0); NEUTROPHILS % 86.1 % (40.0-76.0); PLATELET 272 x1000/uL (130-400); RED BLOOD CELL COUNT 2.65 mill/uL (4.2-5.4); RED CELL DISTRIBUTION WIDTH 18.3 % (11.6-14.6); WHITE BLOOD COUNT 13.3 x1000/uL (4.5-11.0)
[2024-06-16] VITALS (8 sets, daily range): BP systolic 101–161; BP diastolic 53–80; PULSE 76–93; RESP 18–20; TEMP 35.9–37.6; O2SAT 95–98
[2024-06-16 06:19] LABS: CHLORIDE 109 mEq/L (98-107); POTASSIUM 3.6 mEq/L (3.5-5.1); SODIUM 144 mEq/L (136-145)
[2024-06-16 06:20] LABS: CALCIUM 8.5 mg/dL (8.7-10.4); CARBON DIOXIDE 29 mEq/L (21-32)
[2024-06-16 06:25] LABS: CREATININE 1.2 mg/dL (0.6-1.0); GLUCOSE 108 mg/dL (70-105); UREA NITROGEN BLOOD 32 mg/dL (9-23)
[2024-06-16 06:27] LABS: PHOSPHORUS 2.2 mg/dL (2.5-4.9)
[2024-06-16 07:13] LABS: BASOPHILS % 0.1 % (0.0-2.0); EOSINOPHILS % 0.4 % (0.0-5.0); HEMATOCRIT. 25.9 % (36.0-48.0); HEMOGLOBIN. 8.4 g/dL (12.0-16.0); MEAN CORPUSCULAR HEMOGLOBIN 32.5 pg (28.0-32.0); MEAN CORPUSCULAR HGB CONC 32.6 g/dL (31.0-37.0); MEAN CORPUSCULAR VOLUME 99.8 fL (81.0-99.0); MEAN PLATELET VOLUME 8.7 fl (7.4-10.4); MONOCYTES % 6.2 % (2.0-8.0); NEUTROPHILS % 85.3 % (40.0-76.0); PLATELET 312 x1000/uL (130-400); RED BLOOD CELL COUNT 2.59 mill/uL (4.2-5.4); RED CELL DISTRIBUTION WIDTH 18.3 % (11.6-14.6); WHITE BLOOD COUNT 12.2 x1000/uL (4.5-11.0)
[2024-06-16] MEDS: SODIUM PHOSPHATE IV SCH (10:30)
[2024-06-16] MEDS: DEXT 5% IV SCH (10:30)
[2024-06-16] MEDS: WATER IV SCH (10:30)
[2024-06-16] MEDS: MAGNESIUM 2 G PREMIX 50 ML IV NR (10:53)
[2024-06-16] MEDS ORDERED: DILTIAZEM HCL 5MG/ML 5ML VIAL IV ONE (12:45)
[2024-06-16] MEDS: DILTIAZEM HCL 5MG/ML 5ML VIAL IV NR (13:12)
[2024-06-16] MEDS: AMIODARONE 150MG/100ML D5W 100 ML IV NR (13:58)
[2024-06-16] MEDS: AMIODARONE 360MG/200ML 200 ML IV SCH (14:30)
[2024-06-16] MEDS ORDERED: DILTIAZEM HCL 60MG TABLET PO SCH (18:00)
[2024-06-16] MEDS: AMIODARONE 200MG TABLET PO SCH (23:29)
[2024-06-17] VITALS (8 sets, daily range): BP systolic 101–166; BP diastolic 49–99; PULSE 74–89; RESP 18–21; TEMP 36–37.6; O2SAT 93–100
[2024-06-17] MEDS: PANTOPRAZOLE 40MG DR TABLET PO SCH (09:09)
[2024-06-17 10:13] LABS: CARBON DIOXIDE 26 mEq/L (21-32); CHLORIDE 107 mEq/L (98-107); POTASSIUM 3.6 mEq/L (3.5-5.1); SODIUM 142 mEq/L (136-145)
[2024-06-17 10:15] LABS: CALCIUM 8.8 mg/dL (8.7-10.4)
[2024-06-17 10:19] LABS: CREATININE 1.2 mg/dL (0.6-1.0); GLUCOSE 101 mg/dL (70-105); UREA NITROGEN BLOOD 24 mg/dL (9-23)
[2024-06-17 10:22] LABS: PHOSPHORUS 2.3 mg/dL (2.5-4.9)
[2024-06-17] MEDS: AMLODIPINE 5MG TABLET PO SCH (21:27)
[2024-06-17] MEDS: THEOPHYLLINE ANHYDROUS 80MG/15ML ORAL SYR PO SCH (21:29)
[2024-06-17] MEDS ORDERED: NALOXONE HCL 0.4MG/ML VIAL IV PRN (21:30)
[2024-06-17] MEDS: TEMAZEPAM 15MG CAPSULE PO PRN (21:40)
[2024-06-17] MEDS: HYDROCODONE/ACETAMINOPHEN 5/325MG TABLET PO PRN (21:41)
[2024-06-18] VITALS (9 sets, daily range): BP systolic 96–155; BP diastolic 58–76; PULSE 76–87; RESP 18–20; TEMP 36.3–37.3; O2SAT 93–98
[2024-06-18 08:16] LABS: CARBON DIOXIDE 29 mEq/L (21-32); CHLORIDE 108 mEq/L (98-107); POTASSIUM 3.9 mEq/L (3.5-5.1); SODIUM 143 mEq/L (136-145)
[2024-06-18 08:17] LABS: CALCIUM 8.1 mg/dL (8.7-10.4)
[2024-06-18 08:21] LABS: CREATININE 1.1 mg/dL (0.6-1.0)
[2024-06-18 08:22] LABS: GLUCOSE 84 mg/dL (70-105); UREA NITROGEN BLOOD 22 mg/dL (9-23)
[2024-06-18 08:24] LABS: PHOSPHORUS 2.3 mg/dL (2.5-4.9)
[2024-06-18 08:42] LABS: HEMATOCRIT. 22.4 % (36.0-48.0); HEMOGLOBIN. 7.2 g/dL (12.0-16.0); MEAN CORPUSCULAR HEMOGLOBIN 32.2 pg (28.0-32.0); MEAN CORPUSCULAR VOLUME 100.6 fL (81.0-99.0); MEAN PLATELET VOLUME 8.3 fl (7.4-10.4); PLATELET 339 x1000/uL (130-400); RED BLOOD CELL COUNT 2.22 mill/uL (4.2-5.4); RED CELL DISTRIBUTION WIDTH 18.7 % (11.6-14.6); WHITE BLOOD COUNT 13.7 x1000/uL (4.5-11.0)
[2024-06-18 09:00] LABS: DIFFERENTIAL COMMENT 1
[2024-06-18] MEDS: MAGNESIUM 2 G PREMIX 50 ML IV NR (12:29)
[2024-06-18] MEDS: POTASSIUM-SODIUM PHOSPHATE POWDER PACKET PO SCH (12:30)
[2024-06-18] MEDS: MAGNESIUM OXIDE 400MG TABLET PO SCH (15:28)
[2024-06-18 19:48] LABS: ANISOCYTOSIS 1+; PLATELET ESTIMATE NORMAL
[2024-06-18] MEDS: HYDRALAZINE HCL 50MG TABLET PO SCH (20:57)
[2024-06-19] VITALS: BP 166/71; PULSE 91; RESP 20; TEMP 37.2; O2SAT 97
[2024-06-19 04:00] VITALS: BP 182/82; PULSE 85; RESP 20; TEMP 36.4; O2SAT 97
[2024-06-19 06:46] LABS: HEMATOCRIT. 25.1 % (36.0-48.0); HEMOGLOBIN. 7.8 g/dL (12.0-16.0); MEAN CORPUSCULAR HEMOGLOBIN 31.7 pg (28.0-32.0); MEAN CORPUSCULAR HGB CONC 31.2 g/dL (31.0-37.0); MEAN CORPUSCULAR VOLUME 101.6 fL (81.0-99.0); MEAN PLATELET VOLUME 8.6 fl (7.4-10.4); PLATELET 372 x1000/uL (130-400); RED BLOOD CELL COUNT 2.47 mill/uL (4.2-5.4); RED CELL DISTRIBUTION WIDTH 18.8 % (11.6-14.6); WHITE BLOOD COUNT 16.2 x1000/uL (4.5-11.0)
[2024-06-19 06:51] LABS: CHLORIDE 107 mEq/L (98-107); POTASSIUM 4.4 mEq/L (3.5-5.1); SODIUM 143 mEq/L (136-145)
[2024-06-19 06:52] LABS: CARBON DIOXIDE 29 mEq/L (21-32)
[2024-06-19 06:53] LABS: CALCIUM 8.6 mg/dL (8.7-10.4)
[2024-06-19 06:57] LABS: CREATININE 1.3 mg/dL (0.6-1.0)
[2024-06-19 06:58] LABS: GLUCOSE 99 mg/dL (70-105); UREA NITROGEN BLOOD 23 mg/dL (9-23)
[2024-06-19 07:00] LABS: PHOSPHORUS 3.1 mg/dL (2.5-4.9)
[2024-06-19 07:34] LABS: DIFFERENTIAL COMMENT 1
[2024-06-19 08:00] VITALS: BP 126/59; PULSE 83; RESP 20; TEMP 36.4; O2SAT 99
[2024-06-19 12:00] VITALS: BP 144/66; PULSE 80; RESP 20; TEMP 36.4; O2SAT 100
[2024-06-19 16:00] VITALS: BP 130/67; PULSE 87; RESP 18; TEMP 36.5; O2SAT 100
[2024-06-19 16:58] LABS: PLATELET ESTIMATE NORMAL
[2024-06-19 20:00] VITALS: BP 149/65; PULSE 80; RESP 21; TEMP 36.4; O2SAT 100
[2024-06-19] MEDS: POTASSIUM-SODIUM PHOSPHATE POWDER PACKET PO SCH (20:50)
[2024-06-20] VITALS: BP 134/71; PULSE 74; RESP 19; TEMP 36.7; O2SAT 100
[2024-06-20 04:00] VITALS: BP 155/61; PULSE 86; RESP 0; TEMP 36.4; O2SAT 96
[2024-06-20 08:00] VITALS: BP 152/83; PULSE 94; RESP 18; TEMP 36.4; O2SAT 96
[2024-06-20 12:34] VITALS: BP 153/75; PULSE 82; RESP 18; TEMP 37.2; O2SAT 100
[2024-06-20 16:00] VITALS: BP 156/57; PULSE 76; RESP 18; TEMP 35.9; O2SAT 98
[2024-06-20 20:08] VITALS: BP 157/80; PULSE 74; RESP 20; TEMP 36.1; O2SAT 98
[2024-06-21] VITALS: BP 179/68; PULSE 75; RESP 20; TEMP 36.4; O2SAT 95
[2024-06-21 04:00] VITALS: BP 134/60; PULSE 65; RESP 18; TEMP 36.3; O2SAT 95
[2024-06-21 07:59] LABS: CARBON DIOXIDE 30 mEq/L (21-32); CHLORIDE 105 mEq/L (98-107); POTASSIUM 4.9 mEq/L (3.5-5.1); SODIUM 140 mEq/L (136-145)
[2024-06-21 08:00] VITALS: BP 128/48; PULSE 50; RESP 20; TEMP 36.3; O2SAT 99
[2024-06-21 08:00] LABS: CALCIUM 8.6 mg/dL (8.7-10.4)
[2024-06-21 08:02] LABS: CREATININE 1.4 mg/dL (0.6-1.0)
[2024-06-21 08:05] LABS: GLUCOSE 92 mg/dL (70-105); UREA NITROGEN BLOOD 20 mg/dL (9-23)
[2024-06-21 12:00] VITALS: BP 118/87; PULSE 66; RESP 16; TEMP 36.7; O2SAT 97
[2024-06-21] MEDS: MAGNESIUM 2 G PREMIX 50 ML IV SCH (12:47)
[2024-06-21 13:15] LABS: BASOPHILS % 0.3 % (0.0-2.0); EOSINOPHILS % 0.3 % (0.0-5.0); HEMATOCRIT. 25.9 % (36.0-48.0); HEMOGLOBIN. 8.1 g/dL (12.0-16.0); MEAN CORPUSCULAR HEMOGLOBIN 32.5 pg (28.0-32.0); MEAN CORPUSCULAR HGB CONC 31.2 g/dL (31.0-37.0); MEAN CORPUSCULAR VOLUME 104.3 fL (81.0-99.0); MONOCYTES % 5.4 % (2.0-8.0); RED BLOOD CELL COUNT 2.48 mill/uL (4.2-5.4); RED CELL DISTRIBUTION WIDTH 18.5 % (11.6-14.6); WHITE BLOOD COUNT 16.6 x1000/uL (4.5-11.0)
[2024-06-21 13:29] LABS: DIFFERENTIAL COMMENT 1
[2024-06-21 13:46] LABS: PLATELET 360 x1000/uL (130-400)
[2024-06-21 19:11] VITALS: BP 118/87; PULSE 66; TEMP 98.1; O2SAT 97
[2024-06-21 20:00] VITALS: BP 179/89; PULSE 82; RESP 18; TEMP 36.6; O2SAT 96
[2024-06-21] MEDS: HYDRALAZINE HCL 100MG TABLET PO SCH (20:10)
[2024-06-21] MEDS: MAGNESIUM OXIDE 400MG TABLET PO SCH (20:11)
[2024-06-22] VITALS: BP 129/53; PULSE 86; RESP 18; TEMP 37; O2SAT 100
== END 2024-06-22 01:36 | DRG 870 ==
LOC: ER 15:57 → EDBEDREQ 17:32 → MICUSO 23:13 → EDBEDREQ 23:15 → EDBEDREQTM 23:15 → 5EST 06-11 19:48 → 7WST 06-12 15:04
PROVIDERS: ADMIT Internal Medicine; ATTEND Internal Medicine
PROC: 5A1955Z Respiratory Ventilation, Greater than 96 Consecutive Hours (ICD-10-PCS; principal; 2024-06-06)
PROC: 0BH17EZ Insertion of Endotracheal Airway into Trachea, Via Natural or Artificial Opening (ICD-10-PCS; 2024-06-06)
PROC: 02HV33Z Insertion of Infusion Device into Superior Vena Cava, Percutaneous Approach (ICD-10-PCS; 2024-06-07)
PROC: B548ZZA Ultrasonography of Superior Vena Cava, Guidance (ICD-10-PCS; 2024-06-07)
PROC: 5A09357 Assistance with Respiratory Ventilation, Less than 24 Consecutive Hours, Continuous Positive Airway Pressure (ICD-10-PCS; 2024-06-11)
PROC: 5A09357 Assistance with Respiratory Ventilation, Less than 24 Consecutive Hours, Continuous Positive Airway Pressure (ICD-10-PCS; 2024-06-12)
PROC: 4A00X4Z Measurement of Central Nervous Electrical Activity, External Approach (ICD-10-PCS; 2024-06-14)
DX: A41.9 Sepsis, unspecified organism (principal); G82.50 Quadriplegia, unspecified; G92.8 Other toxic encephalopathy; J69.0 Pneumonitis due to inhalation of food and vomit; J96.01 Acute respiratory failure with hypoxia; N17.0 Acute kidney failure with tubular necrosis; J18.9 Pneumonia, unspecified organism; R65.21 Severe sepsis with septic shock; I21.A1 Myocardial infarction type 2; I50.43 Acute on chronic combined systolic (congestive) and diastolic (congestive) heart failure; R57.0 Cardiogenic shock; I13.0 Hypertensive heart and chronic kidney disease with heart failure and stage 1 through stage 4 chronic kidney disease, or unspecified chronic kidney disease; E87.0 Hyperosmolality and hypernatremia; J44.0 Chronic obstructive pulmonary disease with (acute) lower respiratory infection; I48.92 Unspecified atrial flutter; E78.5 Hyperlipidemia, unspecified; B96.89 Other specified bacterial agents as the cause of diseases classified elsewhere; D53.9 Nutritional anemia, unspecified; Z66 Do not resuscitate; E11.22 Type 2 diabetes mellitus with diabetic chronic kidney disease; R74.01 Elevation of levels of liver transaminase levels; I25.10 Atherosclerotic heart disease of native coronary artery without angina pectoris; L98.429 Non-pressure chronic ulcer of back with unspecified severity; N18.9 Chronic kidney disease, unspecified; R13.10 Dysphagia, unspecified; S50.312A Abrasion of left elbow, initial encounter; F19.10 Other psychoactive substance abuse, uncomplicated; T78.3XXA Angioneurotic edema, initial encounter; E66.01 Morbid (severe) obesity due to excess calories; R74.8 Abnormal levels of other serum enzymes; S50.822A Blister (nonthermal) of left forearm, initial encounter; F14.129 Cocaine abuse with intoxication, unspecified; F17.200 Nicotine dependence, unspecified, uncomplicated; Z63.4 Disappearance and death of family member; Z79.899 Other long term (current) drug therapy; Z86.73 Personal history of transient ischemic attack (TIA), and cerebral infarction without residual deficits; Z86.74 Personal history of sudden cardiac arrest; Z82.49 Family history of ischemic heart disease and other diseases of the circulatory system; Z83.3 Family history of diabetes mellitus; X58.XXXA Exposure to other specified factors, initial encounter; Y93.89 Activity, other specified; Y92.89 Other specified places as the place of occurrence of the external cause; Y99.8 Other external cause status; Z68.35 Body mass index [BMI] 35.0-35.9, adult
CPT/HCPCS: 36415; 36573; 36600; 71045; 76770; 80048; 80061; 80076; 80202; 80305; 81003; 82040; 82375; 82550; 82805; 82962; 83036; 83605; 83735; 83880; 84100; 84134; 84145; 84439; 84443; 84484; 85025; 85379; 87070; 92610; 93005; 93306; 93970; 94002; 94003; 94070; 94640; 94660; 94664; 94667; 94760; 95816; 97110; 97116; 97162; 97166; 97530; 98960; 99291; A4606; A6261; C1725; J0282; J0360; J2003; J2470; J2543; J2704; J2920; J3010; J3370; J3475; J3490; J7030; J7050; J7060; J0131